=== PATIENT | male | born 1965 | race Caucasian/White ===

== ENCOUNTER 2019-02-13 11:12 | Emergency (ER) | payer OTHER ==
--- OUTSIDE RECORDS SUMMARY | 2019-02-13 11:15 | XMS REPORT | Continuity of Care Document ---
:1965 Author Organization Interface Problems Problem Status Onset Date Classification Date Comments Source Reported Medications Medication Details Route Status Patient Ordering Order Source Instructions Provider Date Allergies, Adverse Reactions, Alerts Substance Category Reaction Severity Reaction Status Date Comments Source type Reported Immunizations Immunization Date Given Site Status Last Updated Comments Source Results Order Results Value Reference Date Interpretation Comments Source Name Range Vital Signs Vital Sign Value Date Comments Source Encounters Location Location Encounter Encounter Reason Attending ADM DC Status Source Details Type Number For Provider Date Date Visit Outpatient [id number] [facility] 01/21 [facility] [address] [place] [address] Outpatient [id number] [facility] 02/04 [place] [address] [place] Procedures Procedure Code Date Perfomer Comments Source
--- NOTE | 2019-02-13 12:54 | RAD REPORT ---
EXAM DESCRIPTION: RAD - Pelvis - 02/13/2019 12:45 pm CLINICAL HISTORY: Pelvic pain FINDINGS: No fracture or dislocation is seen.
--- NOTE | 2019-02-13 12:56 | RAD REPORT ---
EXAM DESCRIPTION: RAD - Femur Right - 02/13/2019 12:42 pm CLINICAL HISTORY: Leg pain FINDINGS: No fracture is seen.
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
[2019-02-13] MEDS ORDERED: HYDROCODONE/APAP 10/325 TAB ONE (13:34)
== END 2019-02-13 13:34 | disposition home or self-care (01) ==
LOC: ER 11:12
DX: S70.11XA Contusion of right thigh, initial encounter (principal); W01.198A Fall on same level from slipping, tripping and stumbling with subsequent striking against other object, initial encounter; Y93.55 Activity, bike riding; Y92.9 Unspecified place or not applicable; Z88.8 Allergy status to other drugs, medicaments and biological substances; Z95.1 Presence of aortocoronary bypass graft; Z95.818 Presence of other cardiac implants and grafts
CPT/HCPCS: 72170; 99283